=== PATIENT | female | born 1995 | race African-American/Black ===

== ENCOUNTER 2024-02-08 17:41 | Emergency (ER) | payer SELFPAY ==
--- OUTSIDE RECORDS SUMMARY | 2024-02-08 17:45 | XMS REPORT | Continuity of Care Document ---
Author Name Unknown Address [address] [place] [address] [facility] Address [address] [place] [address] Care Team Providers Care Network Director Name Role Phone AMELIA MULLIGAN Primary Care Physician Unav ailDawn Allen Attending Clinician Unavailable Dawn Alfaro Attending Clinician Unavailable Alex Marie MD Attending Clinician [phone] ALEX MARIE Attending Clinician Unavailable JACOB HO Attending Clinician Unavailkatherine Mulligan Amelia GUTIERREZ Attending Clinician + AMELIA MULLIGAN Attending Clinician Unavail able Doctor Unassigned, [place] Attending Clinician U Dawn Mathis Admitting Clinician Unavailable ALEX MARIE Admitting Clinician Unavailable Payers Payer Name Policy Type Policy Number Effective Date Expirati on Date Source [facility] [id number] 2022 00:00:00 Problems Condition Name Condition Details Condition Category Status Onset Date Resolution Date Last Treatment Date Treating Clinician Comments Source Atypical squamous cells of undetermin ed significan ce (ASCUS) on Papanicola ou smear of cervix Atypical squamous cells of undetermin ed significan ce (ASCUS) on Papanicola ou smear of cervix Disease Active 2021-03 00:00: 00 Overview: Formattin g of this note might be different from the original. 10/2021, see scanned records [facility] Allergies, Adverse Reactions, Alerts Allergy Name Allergy Type Status Severity Reaction(s) Onset Date Inactive Date Treating Clinician Comments Source NO KNOWN ALLERGIE S Drug Class Active [facility] Social History Social Habit Start Date Stop Date Quantity Comments Source Exposure to SARS-CoV-2 (event) 2022-04-08 00:00:00 2022-04-18 06:56:00 Not sure [facility] Alcohol intake 2022-04-18 00:00:00 2022-04-18 00:00:00 Ex-drinker (finding) [facility] Tobacco use and exposure 2022-02-15 00:00:00 2022-02-15 00:00:00 Smokeless tobacco non-user [facility] Sex Assigned At 1995 00:00:00 1995 00:00:00 [facility] Smoking Status Start Date Stop Date Source Tobacco smoking consumption unknown [facility] Never smoked tobacco [facility] Medications Ordered Medication Name Filled Medication Name Start Date Stop Date Current Medication? Ordering Clinician Indication Dosage Frequency Signature (SIG) Comments Components Source lactulose (CEPHULAC) solution 60 mL 04-18 16:00: 00 04-18 16:08 :00 No 60mL 60 mL, Oral, ONCE, 1 dose, On Sat04/18/22 at 1000, HAIM [facility] bisacodyL 5 mg EC tablet 04-18 00:00: 00 Yes [id number] 10mg Take 2 tablets by mouth once daily as needed for Constipati on. [facility] docusate sodium 250 mg capsule 04-18 00:00: 00 Yes [id number] 250mg Take 1 capsule by mouth once daily as needed for Constipati on. [facility] Saccharomyc es boulardii (FLORASTOR) 250 mg capsule 04-18 00:00: 00 Yes [id number] 250mg Take 1 capsule by mouth in the morning and 1 capsule in the evening. [facility] hyoscyamine sulfate (LEVSIN/SL) 0.125 mg sublingual tablet 04-18 00:00: [id number] 2 tablets under the tongue every 6 (six) hours as needed (Abdominal pain or cramping). [facility] ketorolac 10 mg tablet 04-18 00:00: 00 Yes [id number] 10mg Take 1 tablet by mouth every 6 (six) hours as needed for Pain (scale 4-6) or Pain (scale 7-10). [facility] No known medications 2021-03 14:16: 35 No No known medication s [facility] Vital Signs Vital Name Observation Time Observation Value Comments S ource Systolic blood pressure 2022-04-18 16:00:00 104 mm[Hg] [facility] Diastolic blood pressure 2022-04-18 16:00:00 78 mm[Hg] [facility] Heart rate 2022-04-18 16:00:00 68 /min [facility] Body temperature 2022-04-18 16:00:00 36.67 Eva [facility] Respiratory rate 2022-04-18 16:00:00 16 /min [facility] Oxygen saturation in Arterial blood by Pulse oximetry 2022-04-18 16:00:00 96 /min [facility] Body height 2022-04-18 12:56:00 152.4 cm [facility] Body weight 2022-04-18 12:56:00 81.647 kg [facility] BMI 2022-04-18 12:56:00 35.15 kg/m2 [facility] Systolic blood pressure 2022-02-15 20:15:00 104 mm[Hg] [facility] Diastolic blood pressure 2022-02-15 20:15:00 71 mm[Hg] [facility] Heart rate 2022-02-15 20:15:00 68 /min [facility] Body temperature 2022-02-15 20:15:00 36.17 Eva [facility] Respiratory rate 2022-02-15 20:15:00 18 /min [facility] Body height 2022-02-15 20:15:00 152.4 cm [facility] Body weight 2022-02-15 20:15:00 81.194 kg [facility] BMI 2022-02-15 20:15:00 34.96 kg/m2 [facility] Procedures Procedure Date / Time Performed Performing Clinicia n Source POCT TEST 2022-04-18 13:14:00 Audrey Andjared lainez [facility] LIPASE 2022-04-18 13:13:00 Alex Marie [facility] TEST, SERUM 2022-04-18 13:13:00 Shayna Marie [facility] COMP. METABOLIC PANEL ([id number]) 2022-04-18 13:13:00 Alex Marie [facility] CBC WITH DIFF 2022-04-18 13:13:00 Alex [facility] URINALYSIS 2022-04-18 13:13:00 Alex Marie [facility] CONSENT/REFUSAL FOR DIAGNOSIS AND TREATMENT 2022-04-18 12:46:51 Doctor Unassigned, [place] [facility] POCT TEST 2022-02-15 20:19:00 Obie Mulligan [facility] ASSIGNMENT OF BENEFITS 2022-02-15 19:38:25 Docto r Unassigned, [place] [facility] Encounters Start Date/Time End Date/Time Encounter Type Admission Type Attending [facility] Care Facility Care Department Encounter ID Source 2023-11-01 12:37:00 Outpatient aDwn Alfaro [facility] [id number] [facility] 2023-08-07 08:00:00 Inpatient QUINN Dawn Alfaro [facility] [id number] [facility] [place] 2024-01-29 10:05:55 2024-01-29 10:44:34 Outpatient HCN HCN [id number] [facility] 2022-04-18 06:59:00 2022-04-18 10:18:00 Emergency Alex Marie [facility] [id number] [facility] 2022-04-18 06:59:00 2022-04-18 10:18:00 Emergency X ALEX MARIE [facility] ERT [id number] [facility] 2022-02-19 12:45:00 2022-02-19 12:45:00 Outpatient R JACOB HO [facility] [id number] [facility] 2022-02-15 14:15:00 2022-02-15 15:00:44 Office Visit Amelia Mulligan [facility] [id number] [facility] 2022-02-15 14:15:00 2022-02-15 15:00:44 Outpatient R AMELIA MULLIGAN [facility] [id number] [facility] 2022-02-15 00:00:00 2022-02-15 00:00:00 Orders Only Doctor Unassigned, [place] [facility] [id number] [facility] Results Test Description Test Time Test Comments Results Result Co mments Source [facility] [id number] 20:19:00* Test Item Value Reference Range Interpretation Comme nts POCT PREG (test code = 1605) Negative On board controls acceptable with C Line (test code = 3574) Yes POCT PREG LOT # (test code = 3575) POCT PREG TEST DATE ( test code = 3576) [facility] [id number] 20:19:00* Test Item Value Reference Range Interpretation Comme nts POCT PREG (test code = 1605) Negative On board controls acceptable with C Line (test code = 3574) Yes POCT PREG LOT # (test code = 3575) POCT PREG TEST DATE ( test code = 3576) [facility]
[2024-02-08] MEDS ORDERED: DICYCLOMINE HCL 20 MG/2 ML AMP IM ONE (19:14)
[2024-02-08] MEDS ORDERED: ACETAMINOPHEN 500 MG TAB ONE (19:14)
[2024-02-08 19:37] LABS: Absolute Basophils 0.1 K/uL (0-0.5); Absolute Eosinophils 0.1 K/uL (0-0.5); Absolute Lymphocytes (CBC) 2.1 K/uL (0.7-4.9); Absolute Monocytes 0.5 K/uL (0.1-1.3); Absolute Neutrophil 5.5 K/uL (1.8-8.0); Basophils % 0.7 % (0-1.3); Hematocrit 40.9 % (36.0-45.0); Hemoglobin 13.1 g/dL (12.0-15.0); Lymphocytes % 25.2 % (15.3-44.8); MCH 27.8 pg (27.0-35.0); MCHC 32.1 g/dL (32.0-36.0); MCV 86.7 fL (80-100); MPV 8.7 fL (7.6-11.3); Monocytes % 6.2 % (3.3-12.3); Neutrophils % 66.9 % (41.7-73.7); Platelets 249 thou/uL (152-406); RBC Red Blood Cell Count 4.72 M/uL (3.86-4.86); Red Cell Distribution Width 15.2 % (12.1-15.2)
[2024-02-08 19:43] LABS: Specific Gravity 1.025 (1.005-1.030)
[2024-02-08 19:44] LABS: Specific Gravity 1.025 (1.005-1.030); Sqamous Epithelial <5 /HPF (None Seen); Urine Bacteria None Seen /HPF (<20); Urine Bilirubin NEGATIVE (Negative); Urine Blood Trace (Negative); Urine Clarity Turbid (Clear); Urine Color Light-Yellow (Yellow); Urine Culture Reflex Order NOT NEEDED; Urine Glucose NEGATIVE (Negative); Urine Ketones NEGATIVE (Negative); Urine Microscopic Reflex YN ORDER UMIC; Urine Mucus 1+ /HPF (None Seen); Urine Nitrite NEGATIVE (Negative); Urine Protein NEGATIVE (Negative); Urine RBC <5 /HPF (None Seen); Urine Urobilinogen Normal (Normal); Urine WBC <5 /HPF (<5)
--- NOTE | 2024-02-08 20:12 | RAD REPORT ---
EXAM: TRANSVAG OB HISTORY: Abd cramping, ;Vaginal bleeding COMPARISON: None TECHNIQUE: Multiple grayscale and color Doppler images were obtained in a transvaginal pelvic ultraso und. Spectral analysis of the Doppler waveforms of the ovaries were performed. FINDINGS: UTERUS: There is an intrauterine gestational sac. This measures 1.2 cm. A yolk sac is identified. No pole. No free fluid is seen in the pelvis. RIGHT OVARY: Normal flow without focal mass. LEFT OVARY: Normal flow without focal mass. IMPRESSION: Gestational sac with yolk sac identified would indicate a 6 week 0 day gestation. No pole. This may be due to early dates. Recommend correlation with beta hCG and follow-up ultrasound. Bilateral ovarian blood flow is present.
[2024-02-08 20:16] LABS: Anion Gap 8.7 mEq/L (5.0-15.0); Potassium 3.7 mEq/L (3.5-5.1)
--- NOTE | 2024-02-08 20:37 | ER ---
Nurse's Notes [facility] Name: Romero Perez Age: 28 yrs Sex: Female : 1995 Arrival Date: 02/08/2024 Time: 17:41 Bed DX3 Private MD: Diagnosis: Other specified related conditions, first trimester;Threatened ;Lower abdominal pain, unspecified Presentation: 02/07 18:59 Chief complaint: Patient states: vaginal spotting and abd cramping x 2-3 days. PT ss reports she took a positive home test 1 month ago. Coronavirus screen: Client denies travel out of the [place] in the last 14 days. Ebola Screen: Patient denies exposure to infectious person. Patient denies travel to an Ebola-affected area in the 21 days before illness onset. Initial Sepsis Screen: Does the patient meet any 2 criteria? No. Patient's initial sepsis screen is negative. Does the patient have a suspected source of infection? No. Patient's initial sepsis screen is negative. Risk Assessment: Do you want to hurt yourself or someone else? Patient reports no desire to harm self or others. Onset of symptoms was February 05, 2024. 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 - Infectious Disease History:: Denies. - Social history:: Smoking status: Patient denies any tobacco usage or history of. Screenin:41 [facility] ED Fall Risk Assessment (Adult) History of falling in the last 3 months, lg3 including since admission No falls in past 3 months (0 pts) Confusion or Disorientation No (0 pts) Intoxicated or Sedated No (0 pts) Impaired Gait No (0 pts) Mobility Assist Device Used No (0 pt) Altered Elimination No (0 pt) Score/Fall Risk Level 0 - 2 = Low Risk Oriented to surroundings, Maintained a safe environment, Educated pt \T\ family on fall prevention, incl call for assistance when getting out of bed, Assessed \T\ reinforced patient's understanding of fall precautions. Abuse screen: Denies threats or abuse. Denies injuries from another. Nutritional screening: No deficits noted. Tuberculosis screening: No symptoms or risk factors identified. Assessment: 20:41 General: Appears in no apparent distress. comfortable, Behavior is calm, cooperative. lg3 Pain: Complains of pain in pelvis Pain does not radiate. Pain currently is 2 out of 10 on a pain scale. Quality of pain is described as crampy. Neuro: No deficits noted. Cruz Agitation-Sedation Scale (RASS): 0 - Alert and Calm Level of Consciousness is awake, alert, obeys commands, Oriented to person, place, time, situation. Cardiovascular: No deficits noted. Denies chest pain, shortness of breath, Capillary refill < 3 seconds Clubbing of nail beds is absent JVD is absent Patient's skin is warm and dry. Respiratory: No deficits noted. Airway is patent Respiratory effort is even, unlabored, Respiratory pattern is regular, symmetrical. GI: No deficits noted. Abdomen is round non-distended, Bowel sounds present X 4 quads. Reports cramping. : Urine is clear, Reports vaginal bleeding that is spotty. EENT: No deficits noted. No signs and/or symptoms were reported regarding the EENT system. Derm: No deficits noted. No signs and/or symptoms reported regarding the dermatologic system. Skin is intact, is healthy with good turgor, Skin is dry, Skin is normal, Skin temperature is warm. Musculoskeletal: No deficits noted. No signs and/or symptoms reported regarding the musculoskeletal system. Circulation, motion, and sensation intact. Range of motion: intact in all extremities. Vital Signs: 18:59 BP 128 / 79; Pulse 61; Resp 16; Temp 97.8(TE); Pulse Ox 100% on R/A; Weight 82.55 kg; ss Height 5 ft. 0 in. ; Pain 7/10; 20:41 BP 121 / 76; Pulse 64; Resp 17 S; Temp 97.5(O); Pulse Ox 100% on R/A; lg3 18:59 Body Mass Index 35.54 (82.55 kg, 152.4 cm) ss 18:59 Pain Scale: Adult ss ED Course: 17:45 Patient arrived in ED. ra3 17:58 Pawel Fofana PA is PHCP. cp 17:58 Pawel Coats MD is Attending Physician. cp 19:01 Triage completed. ss 19:01 Arm band placed on right wrist. ss 19:33 Initial lab(s) drawn, by ED staff, sent to lab. Inserted saline lock: 18 gauge in right lg3 antecubital area, using aseptic technique. Blood collected. Flushed with 10 mL NS. 19:34 Abo/rh Typing Sent. lg3 19:34 Basic Metabolic Panel Sent. lg3 19:34 CBC with Diff Sent. lg3 19:34 Test, Urine Sent. lg3 19:34 Quantitative Hcg Sent. lg3 19:34 Urinalysis w/ reflexes Sent. lg3 20:04 TRANSVAG OB In Process Unspecified. EDMS 20:41 Patient has correct armband on for positive identification. lg3 20:41 No provider procedures requiring assistance completed. IV discontinued, intact, lg3 bleeding controlled, No redness/swelling at site. Pressure dressing applied. Administered Medications: 19:25 Drug: Acetaminophen PO 1000 mg PO once Route: PO; lg3 20:43 Follow up: Response: No adverse reaction lg3 19:25 Drug: Dicyclomine IM 20 mg IM once Route: IM; Site: right deltoid; lg3 20:43 Follow up: Response: No adverse reaction lg3 Medication: 20:41 VIS not applicable for this client. lg3 Outcome: 20:37 Discharge ordered by . cp 20:41 Discharged to home ambulatory, lg3 20:41 Condition: stable 20:41 Discharge instructions given to patient, Instructed on discharge instructions, follow up and referral plans. Demonstrated understanding of instructions, follow-up care, 20:44 Patient left the ED. lg3 Signatures: Dispatcher [employer] EDMS Lisa Viveros, RN RN Pawel Mcdonough, PA Johana Guevara cp, RN RN lg3 Tawana Lui ra3
--- NOTE | 2024-02-08 20:37 | EDPHYS ---
Physician Documentation [facility] Name: Romero Perez Age: 28 yrs Sex: Female : 1995 Arrival Date: 02/08/2024 Time: 17:41 Bed DX3 Private MD: ED Physician Pawel Coats HPI: 02/07 18:25 This 28 yrs old Black Female presents to ER via Ambulatory with complaints of Vaginal cp Bleeding - and cramping 21 wks preg. 18:25 The patient presents with vaginal bleeding that is light, spotting. cp 18:25 Onset: The symptoms/episode began/occurred 3 day(s) ago. cp 18:25 Associated signs and symptoms: Pertinent positives: lower abdomen cramping and pain. cp 18:25 Patient is a 28-year-old female with no significant past medical history who presents cp to the emergency department with complaints of lower abdominal pain and cramping for the last 2 to 3 days. She has had some spotting and now with some mild vaginal bleeding. Reports taking a home test about a month ago that was positive and she believes she is about 21 weeks as she is unsure of her last menstrual cycle. Patient reports she has not had any care as she is waiting for her to qualify for insurance. 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 - Infectious Disease History:: Denies. - Social history:: Smoking status: Patient denies any tobacco usage or history of. ROS: 18:30 : Positive for vaginal bleeding, Negative for urinary symptoms, cp 18:30 Eyes: Negative for injury, pain, redness, and discharge, cp 18:30 Constitutional: Negative for body aches, chills, poor PO intake, 18:30 Cardiovascular: Negative for chest pain, palpitations, 18:30 Respiratory: Negative for cough, shortness of breath, wheezing, 18:30 Abdomen/GI: Positive for abdominal cramps, of the suprapubic area, right lower quadrant and left lower quadrant, Negative for diarrhea, active vomiting, 18:30 Back: Negative for radiated pain, 18:30 Neuro: Negative for dizziness, syncope, near syncope, weakness, 18:30 All other systems are negative, Exam: 18:33 Constitutional: The patient appears in no acute distress, alert, awake, well developed, cp well nourished, uncomfortable, 18:33 Head/Face: Normocephalic, atraumatic. cp 18:33 Eyes: Periorbital structures: appear normal, Conjunctiva: normal, no exudate, no injection, Sclera: no appreciated abnormality, Lids and lashes: appear normal, bilaterally, 18:33 ENT: External ear(s): are unremarkable, Nose: is normal, Mouth: Lips: moist, Oral mucosa: moist, Posterior pharynx: Airway: no evidence of obstruction, patent, 18:33 Chest/axilla: Inspection: normal, 18:33 Cardiovascular: Rate: normal, Rhythm: regular, 18:33 Respiratory: the patient does not display signs of respiratory distress, Respirations: normal, no use of accessory muscles, no retractions, labored breathing, is not present, Breath sounds: are clear throughout, no decreased breath sounds, no stridor, no wheezing, 18:33 Abdomen/GI: Inspection: abdomen appears normal, Bowel sounds: active, all quadrants, Palpation: soft, in all quadrants, mild abdominal tenderness, in the suprapubic area, right lower quadrant and left lower quadrant, rebound tenderness, is not appreciated, involuntary guarding, is not appreciated, 18:33 Back: CVA tenderness, is absent, Vital Signs: 18:59 BP 128 / 79; Pulse 61; Resp 16; Temp 97.8(TE); Pulse Ox 100% on R/A; Weight 82.55 kg; ss Height 5 ft. 0 in. ; Pain 7/10; 20:41 BP 121 / 76; Pulse 64; Resp 17 S; Temp 97.5(O); Pulse Ox 100% on R/A; lg3 18:59 Body Mass Index 35.54 (82.55 kg, 152.4 cm) ss 18:59 Pain Scale: Adult ss MDM: 19:00 Medical Screening Exam initiated cp 20:36 Data reviewed: vital signs, nurses notes, lab test result(s), radiologic studies, cp ultrasound, and as a result, I will discharge patient. 20:36 Differential diagnosis: dysmenorrhea, ovarian cyst, uterine fibroids, urinary tract cp infection, vaginosis. I considered the following discharge prescriptions or medication management in the emergency department Medications were administered in the Emergency Department. See MAR. Counseling: I had a detailed discussion with the patient and/or guardian regarding the historical points, exam findings, and any diagnostic results supporting the discharge/admit diagnosis, lab results, radiology results, the need for outpatient follow up, an OB/Gyne specialist, to return to the emergency department if symptoms worsen or persist or if there are any questions or concerns that arise at home. Response to treatment: the patient's symptoms have mildly improved after treatment, and as a result, I will discharge patient. 02/07 18:17 Order name: Abo/rh Typing; Complete Time: 20:25 02/07 20:26 Interpretation: Reviewed. 02/07 18:17 Order name: Basic Metabolic Panel; Complete Time: 20:25 02/07 20:25 Interpretation: CA 10.2; Reviewed. 02/07 18:17 Order name: CBC with Diff; Complete Time: 20:25 02/07 20:26 Interpretation: Reviewed. 02/07 18:17 Order name: Test, Urine; Complete Time: 20:25 02/07 20:26 Interpretation: Reviewed. 02/07 18:17 Order name: Quantitative Hcg; Complete Time: 20:25 02/07 20:26 Interpretation: Reviewed. 02/07 18:17 Order name: Urinalysis w/ reflexes; Complete Time: 20:25 cp 02/07 20:26 Interpretation: Normal except: [facility] Turbid; UBLD Trace. 02/07 19:36 Order name: TRANSVAG OB; Complete Time: 20:25 EDMS 02/07 20:27 Interpretation: Reviewed. 02/07 18:17 Order name: IV Saline Lock; Complete Time: 19:33 cp 02/07 18:17 Order name: Labs collected and sent; Complete Time: 19:33 cp 02/07 18:17 Order name: NPO; Complete Time: 19:34 cp Administered Medications: 19:25 Drug: Acetaminophen PO 1000 mg PO once Route: PO; lg3 20:43 Follow up: Response: No adverse reaction lg3 19:25 Drug: Dicyclomine IM 20 mg IM once Route: IM; Site: right deltoid; lg3 20:43 Follow up: Response: No adverse reaction lg3 Disposition Summary: 02/08/24 20:37 Discharge Ordered Notes: Location: Home cp Problem: new cp Symptoms: have improved cp Condition: Stable cp Diagnosis - Other specified related conditions, first trimester cp - Threatened cp - Lower abdominal pain, unspecified cp Followup: cp - With: Private Physician - When: 1 week - Reason: Recheck today's complaints Discharge Instructions: - Discharge Summary Sheet cp - Abdominal Pain During cp - Care cp - Threatened Miscarriage cp - Vaginal Bleeding During , First Trimester cp - First Trimester of cp - Activity Restriction During cp Forms: - Medication Reconciliation Form cp - Antibiotic Education cp - Prescription Opioid Use cp - Patient Portal Instructions cp - Leadership Thank You Letter cp Signatures: Dispatcher [employer] Lisa Gardner, RN RN Pawel Fofana PA PA Johana Pemberton RN RN lg3 Corrections: (The following items were deleted from the chart) 19:23 19:18 Transvaginal Ob+US.RAD.BRZ ordered. EDMS EDMS 19:36 19:23 OB Limited ordered. EDMS EDMS 20:25 20:25 Reviewed. cp cp
[2024-02-08 22:06] VITALS: O2SAT 100
[2024-02-08 22:12] VITALS: BP 121/76; TEMP 97.5
== END 2024-02-08 20:44 | disposition home or self-care (01) ==
LOC: ER 17:41
DX: O20.0 Threatened abortion (principal)
CPT/HCPCS: 36415; 76813; 80048; 81001; 81025; 84702; 85025; 86900; 86901; 96372; 99284; J0500